=== PATIENT | female | born 1970 | race Caucasian/White ===

== ENCOUNTER 2021-09-28 11:24 | Emergency (ER) | payer OTHER ==
[~2021-09-28] VITALS: Ht 160 cm; Wt 95.2 kg
[2021-09-28] MEDS ORDERED: IBUP600 PO (16:04)
[2021-09-28] MEDS ORDERED: Norco 5-325 Ta1 EACH PO (16:04)
== END 2021-09-28 16:30 | disposition home or self-care (01) ==
LOC: ER 11:24
DX: S52.591A Other fractures of lower end of right radius, initial encounter for closed fracture (principal); S52.611A Displaced fracture of right ulna styloid process, initial encounter for closed fracture; W19.XXXA Unspecified fall, initial encounter
CPT/HCPCS: 73100; 73110; J1885; J7030